=== PATIENT | male | born 1985 | race Caucasian/White ===

== ENCOUNTER 2019-11-27 09:08 | Emergency (ER) | payer SELFPAY ==
[~2019-11-27] VITALS: Ht 190.5 cm; Wt 108.9 kg
--- OUTSIDE RECORDS SUMMARY | 2019-11-27 09:10 | XMS REPORT ---
Author Author [facility] Address Unknown Phone Unavailable Care Team Providers Care [place] Name Role Phone Unavailable Unavailable Payers Payer Name Policy Type Policy Number Effective Date Expiration Date Problems This patient has no known problems. Allergies, Adverse Reactions, Alerts Allergy Name Allergy Type Status Severity Reaction(s) Onset Date Inactive Date Treating Clinician Comments No Known Allergies DA Active U 2019-07-03 00:00:00 Medications This patient has no known medications. Results Test Description Test Time Test Comments Text Results Atomic Results Result Comments - XR CHEST 2 V 2019-07-03 16:28:00 FAX: GANESH DIA NP [place]: St: REG Name: [facility] : 1985 Age/S: 34/M [address] [facility] Unit #: [id number] Loc: [place] [address] Phys: GANESH DIA NP Acct: [id number] Dis Date: Status: REG ER PHONE #: [phone] Exam Date: 07/03/2019 1547 FAX #: [phone] Reason: cough, congestion and fever EXAMS: CPT CODE: [id number] XR CHEST 2 V 22981 EXAM: Chest x-ray, 2 views; INFORMATION: Fever, cough and congestion; FINDINGS: Small infiltrate in the lingula. The remainder the lungs is clear; no effusions; no pneumothorax. Unremarkable cardiomediastinal silhouette. Old, consolidated fracture of the right clavicle. IMPRESSION: Lingular infiltrate. Location code: [facility] at 5621 Reported and signed by: Guevara Sr M.D. CC: GANESH DIA NP Technologist: MAINE RODRIGUEZ Trnbeulahrd Date/Time/By: 07/03/2019 (0386) : By: Coretta Orig Print D/T: S: 07/03/2019 (4975) PAGE 1 Signed Report
[2019-11-27] MEDS ORDERED: FLUORESCEIN SOD(OPTH) 1 MG STRP OP NR (09:15)
[2019-11-27] MEDS ORDERED: EYE IRRIGATION (OPTH) 120 ML BTL OP ONE (09:15)
[2019-11-27] MEDS ORDERED: TOBRAMYCIN 0.3% OPTH OINT 3.5 GM TUBE OP ONE (09:15)
[2019-11-27] MEDS ORDERED: TETRACAINE HCL 0.5% OPTH SOLN 4 ML BTL OP ONE (09:15)
[2019-11-27] MEDS ORDERED: CYCLOPENTOLATE HCL 1% OPTH SOLN 2ML BTL OP ONE (09:15)
[2019-11-27] MEDS ORDERED: TETANUS/DIPHTHERIA TOX ADULT 0.5 ML SYR ONE (09:27)
[2019-11-27] MEDS ORDERED: TETANUS/DIPHTHERIA TOX ADULT 0.5 ML SYR IM ONE (09:30)
== END 2019-11-27 09:36 | disposition home or self-care (01) ==
LOC: ER 09:08
DX: H16.133 Photokeratitis, bilateral (principal); S05.01XA Injury of conjunctiva and corneal abrasion without foreign body, right eye, initial encounter; W89.8XXA Exposure to other man-made visible and ultraviolet light, initial encounter; F17.210 Nicotine dependence, cigarettes, uncomplicated
CPT/HCPCS: 90471; 90714; 99282